=== PATIENT | male | born 1980 | race American Indian/Alaskan Native ===

== ENCOUNTER 2016-12-09 07:34 | Inpatient (IN) | payer OTHER ==
[2016-12-09] MEDS ORDERED: NACL 0.9% 1000 ML 1,000 ML ONE (08:13)
[2016-12-09] MEDS ORDERED: NACL 0.9% 1000 ML 1,000 ML IV ONE (08:20)
[2016-12-09 08:23] LABS: Hematocrit 37.6 % (35.5-45.6); Hemoglobin 12.5 gm/dl (11.8-15.2); Mean Corpuscular HGB Conc 33 % (32-34); Mean Corpuscular Hemoglobin 29 pg (28-32); Mean Corpuscular Volume 89 fl (84-94); Platelet Count 354 K/mm3 (140-440); Red Blood Count 4.25 M/mm3 (3.65-5.03); Red Cell Distribution Width 11.8 % (13.2-15.2); White Blood Count 6.9 K/mm3 (4.5-11.0)
[2016-12-09 08:46] LABS: Anion Gap 16 mmol/L; BUN/Creatinine Ratio 41.66; Blood Urea Nitrogen 25 mg/dL (9-20); Calcium 10.1 mg/dL (8.4-10.2); Carbon Dioxide 24 mmol/L (22-30); Glucose 124 mg/dL (75-100); Potassium 4.1 mmol/L (3.6-5.0); Sodium 135 mmol/L (137-145)
[2016-12-09 09:01] LABS: Basophils % (Manual) 0 % (0.0-1.8); Blastocytes % (Manual) 0 %; Eosinophils % (Manual) 0 % (0.0-4.3)
[2016-12-09 09:03] LABS: Diff Status Complete; RBC Morphology Normal
[2016-12-09 09:05] LABS: Bilirubin,Urine NEG (Negative); Blood,Urine NEG (Negative); Ketones,Urine TR mg/dL (Negative); Leukocyte Esterase,Urine NEG (Negative); Mucus,Urine FEW /HPF; Nitrite,Urine NEG (Negative); Protein,Urine <15 mg/dL mg/dL (Negative); Urobilinogen,Urine < 2.0 mg/dL (<2.0)
--- NOTE | 2016-12-09 10:09 | Emergency Department Report ---
HPI - General Chief Complaint: Arrhythmia/Palpitations Time Seen by Provider: 12/09/16 10:03 - HPI HPI: Chief complaint: Heart racing and chest pain HPI: Patient is a 36-year-old male with no previous history who presents with 1- 2 week history of intermittent chest racing. Patient states it became constant last night. Patient has been having tightness intermittently lasting less than 5 minutes off and on. Patient complains of slight weight loss and feeling hot all the time. Patient has no previous history of hypertension, diabetes, cocaine use, cholesterol, family history of coronary artery disease, personal or family history of DVT, no surgery or recent travel. Mode of arrival: [private car] Source: [Patient] Began: 1-2 weeks Duration: See above Context: See above Quality: See above Severity: Currently 0 out of 10 Improved with: Nothing Worsened with: Nothing Associated signs and symptoms: See above ED Past Medical Hx - Past Medical History Previous Medical History?: No - Surgical History Past Surgical History?: No - Social History Smoking Status: Never Smoker Substance Use Type: Alcohol - Medications Home Medications: Home Medications Medication Instructions Recorded Confirmed Last Taken Type No Known Home Medications [No 12/09/16 12/09/16 Unknown History Reported Home Medications] ED Review of Systems ROS: Stated complaint: RAPID HEART BEAT Other details as noted in HPI ROS Constitutional: No fever ENT: No uri symptoms Cardiovascular: chest pain Respiratory: No sob or cough GI: No nausea vomiting or diarrhea : No dysuria frequency or urgency, Skin: No rash Neuro: No focal weakness or numbness Psych: No depression Alejandro/lymph: No edema Physical Exam - Physical Exam Vital Signs: Vital Signs 12/09/16 12/09/16 12/09/16 07:38 08:01 08:02 Temperature 98.6 F Pulse Rate 138 H 113 H 128 H Respiratory 20 21 26 H Rate Blood Pressure 158/78 124/70 Blood Pressure [Left] O2 Sat by Pulse 99 Oximetry 12/09/16 12/09/16 12/09/16 08:04 08:06 08:08 Temperature 98.4 F Pulse Rate 126 H 139 H 137 H Respiratory 14 25 H 19 Rate Blood Pressure 124/70 124/70 124/70 Blood Pressure 124/70 [Left] O2 Sat by Pulse 99 98 99 Oximetry 12/09/16 12/09/16 12/09/16 08:10 08:12 08:14 Temperature Pulse Rate 120 H 120 H 120 H Respiratory 15 14 18 Rate Blood Pressure 124/70 124/70 124/70 Blood Pressure [Left] O2 Sat by Pulse 98 98 98 Oximetry 12/09/16 12/09/16 12/09/16 08:16 08:18 08:20 Temperature Pulse Rate 119 H 118 H 119 H Respiratory 17 18 18 Rate Blood Pressure 124/70 124/70 124/70 Blood Pressure [Left] O2 Sat by Pulse 98 99 98 Oximetry 12/09/16 12/09/16 12/09/16 08:22 08:24 08:26 Temperature Pulse Rate 112 H 114 H 113 H Respiratory 17 22 24 Rate Blood Pressure 124/70 124/70 124/70 Blood Pressure [Left] O2 Sat by Pulse 98 98 99 Oximetry 12/09/16 12/09/16 12/09/16 08:28 08:30 08:32 Temperature Pulse Rate 118 H 114 H 131 H Respiratory 18 22 18 Rate Blood Pressure 124/70 124/70 124/70 Blood Pressure [Left] O2 Sat by Pulse 97 98 98 Oximetry 12/09/16 12/09/16 12/09/16 08:34 08:36 08:38 Temperature Pulse Rate 139 H 121 H 115 H Respiratory 21 21 35 H Rate Blood Pressure 124/70 124/70 124/70 Blood Pressure [Left] O2 Sat by Pulse 98 99 99 Oximetry 12/09/16 12/09/16 12/09/16 08:40 08:42 08:44 Temperature Pulse Rate 120 H 119 H 118 H Respiratory 21 26 H 16 Rate Blood Pressure 124/70 124/70 124/70 Blood Pressure [Left] O2 Sat by Pulse 98 98 99 Oximetry 12/09/16 12/09/16 12/09/16 08:46 08:48 08:50 Temperature Pulse Rate 118 H 120 H 121 H Respiratory 25 H 28 H 22 Rate Blood Pressure 124/70 124/70 124/70 Blood Pressure [Left] O2 Sat by Pulse 99 100 98 Oximetry 12/09/16 12/09/16 12/09/16 08:52 08:54 08:56 Temperature Pulse Rate 114 H 121 H 119 H Respiratory 18 18 21 Rate Blood Pressure 124/70 124/70 124/70 Blood Pressure [Left] O2 Sat by Pulse 99 98 98 Oximetry 12/09/16 12/09/16 12/09/16 08:58 09:00 09:02 Temperature Pulse Rate 121 H 120 H 131 H Respiratory 22 20 18 Rate Blood Pressure 124/70 127/58 127/58 Blood Pressure [Left] O2 Sat by Pulse 98 97 100 Oximetry 12/09/16 12/09/16 12/09/16 09:04 09:06 09:08 Temperature Pulse Rate 120 H 121 H 124 H Respiratory 24 27 H 21 Rate Blood Pressure 127/58 127/58 127/58 Blood Pressure [Left] O2 Sat by Pulse 97 98 99 Oximetry 12/09/16 12/09/16 12/09/16 09:10 09:12 09:14 Temperature Pulse Rate 125 H 123 H 121 H Respiratory 25 H 24 25 H Rate Blood Pressure 127/58 127/58 127/58 Blood Pressure [Left] O2 Sat by Pulse 99 98 98 Oximetry 12/09/16 12/09/16 12/09/16 09:16 09:18 09:20 Temperature Pulse Rate 123 H 116 H 122 H Respiratory 26 H 23 24 Rate Blood Pressure 127/58 127/58 127/58 Blood Pressure [Left] O2 Sat by Pulse 98 98 98 Oximetry 12/09/16 12/09/16 12/09/16 09:22 09:24 09:26 Temperature Pulse Rate 120 H 119 H 119 H Respiratory 22 24 26 H Rate Blood Pressure 127/58 127/58 127/58 Blood Pressure [Left] O2 Sat by Pulse 98 98 97 Oximetry 12/09/16 12/09/16 12/09/16 09:28 09:30 09:32 Temperature Pulse Rate 116 H 121 H 117 H Respiratory 25 H 24 24 Rate Blood Pressure 127/58 127/58 127/58 Blood Pressure [Left] O2 Sat by Pulse 98 98 98 Oximetry 12/09/16 12/09/16 12/09/16 09:34 09:36 09:38 Temperature Pulse Rate 129 H 119 H 122 H Respiratory 24 25 H 25 H Rate Blood Pressure 127/58 127/58 127/58 Blood Pressure [Left] O2 Sat by Pulse 98 98 97 Oximetry 12/09/16 12/09/16 12/09/16 09:40 09:42 09:44 Temperature Pulse Rate 122 H 120 H 133 H Respiratory 25 H 14 25 H Rate Blood Pressure 127/58 127/58 127/58 Blood Pressure [Left] O2 Sat by Pulse 98 98 99 Oximetry 12/09/16 09:46 Temperature Pulse Rate 128 H Respiratory 11 L Rate Blood Pressure 127/58 Blood Pressure [Left] O2 Sat by Pulse 99 Oximetry Physical Exam: GENERAL: The patient is well-developed well-nourished . HEENT: Normocephalic. Atraumatic. Extraocular motions are intact. Patient has moist mucous membranes. NECK: Supple. No meningitic signs are noted. There is no adenopathy noted. CHEST/LUNGS: Clear to auscultation. There is no respiratory distress noted. HEART/CARDIOVASCULAR: Regular. There is tachycardia. There is no gallop rub or murmur. ABDOMEN: Abdomen is soft, nontender. Patient has normal bowel sounds. There is no abdominal distention. SKIN: There is no rash. There is no edema. There is no diaphoresis. NEURO: The patient is awake, alert, and oriented. The patient is cooperative. The patient has no focal neurologic deficits. The patient has normal speech. MUSCULOSKELETAL: There is no tenderness or deformity. There is no limitation range of motion. There is no evidence of acute injury. ED Course Vital Signs 12/09/16 12/09/16 12/09/16 07:38 08:01 08:02 Temperature 98.6 F Pulse Rate 138 H 113 H 128 H Respiratory 20 21 26 H Rate Blood Pressure 158/78 124/70 Blood Pressure [Left] O2 Sat by Pulse 99 Oximetry 12/09/16 12/09/16 12/09/16 08:04 08:06 08:08 Temperature 98.4 F Pulse Rate 126 H 139 H 137 H Respiratory 14 25 H 19 Rate Blood Pressure 124/70 124/70 124/70 Blood Pressure 124/70 [Left] O2 Sat by Pulse 99 98 99 Oximetry 12/09/16 12/09/16 12/09/16 08:10 08:12 08:14 Temperature Pulse Rate 120 H 120 H 120 H Respiratory 15 14 18 Rate Blood Pressure 124/70 124/70 124/70 Blood Pressure [Left] O2 Sat by Pulse 98 98 98 Oximetry 12/09/16 12/09/16 12/09/16 08:16 08:18 08:20 Temperature Pulse Rate 119 H 118 H 119 H Respiratory 17 18 18 Rate Blood Pressure 124/70 124/70 124/70 Blood Pressure [Left] O2 Sat by Pulse 98 99 98 Oximetry 12/09/16 12/09/16 12/09/16 08:22 08:24 08:26 Temperature Pulse Rate 112 H 114 H 113 H Respiratory 17 22 24 Rate Blood Pressure 124/70 124/70 124/70 Blood Pressure [Left] O2 Sat by Pulse 98 98 99 Oximetry 12/09/16 12/09/16 12/09/16 08:28 08:30 08:32 Temperature Pulse Rate 118 H 114 H 131 H Respiratory 18 22 18 Rate Blood Pressure 124/70 124/70 124/70 Blood Pressure [Left] O2 Sat by Pulse 97 98 98 Oximetry 12/09/16 12/09/16 12/09/16 08:34 08:36 08:38 Temperature Pulse Rate 139 H 121 H 115 H Respiratory 21 21 35 H Rate Blood Pressure 124/70 124/70 124/70 Blood Pressure [Left] O2 Sat by Pulse 98 99 99 Oximetry 12/09/16 12/09/16 12/09/16 08:40 08:42 08:44 Temperature Pulse Rate 120 H 119 H 118 H Respiratory 21 26 H 16 Rate Blood Pressure 124/70 124/70 124/70 Blood Pressure [Left] O2 Sat by Pulse 98 98 99 Oximetry 12/09/16 12/09/16 12/09/16 08:46 08:48 08:50 Temperature Pulse Rate 118 H 120 H 121 H Respiratory 25 H 28 H 22 Rate Blood Pressure 124/70 124/70 124/70 Blood Pressure [Left] O2 Sat by Pulse 99 100 98 Oximetry 12/09/16 12/09/16 12/09/16 08:52 08:54 08:56 Temperature Pulse Rate 114 H 121 H 119 H Respiratory 18 18 21 Rate Blood Pressure 124/70 124/70 124/70 Blood Pressure [Left] O2 Sat by Pulse 99 98 98 Oximetry 12/09/16 12/09/16 12/09/16 08:58 09:00 09:02 Temperature Pulse Rate 121 H 120 H 131 H Respiratory 22 20 18 Rate Blood Pressure 124/70 127/58 127/58 Blood Pressure [Left] O2 Sat by Pulse 98 97 100 Oximetry 12/09/16 12/09/16 12/09/16 09:04 09:06 09:08 Temperature Pulse Rate 120 H 121 H 124 H Respiratory 24 27 H 21 Rate Blood Pressure 127/58 127/58 127/58 Blood Pressure [Left] O2 Sat by Pulse 97 98 99 Oximetry 12/09/16 12/09/16 12/09/16 09:10 09:12 09:14 Temperature Pulse Rate 125 H 123 H 121 H Respiratory 25 H 24 25 H Rate Blood Pressure 127/58 127/58 127/58 Blood Pressure [Left] O2 Sat by Pulse 99 98 98 Oximetry 12/09/16 12/09/16 12/09/16 09:16 09:18 09:20 Temperature Pulse Rate 123 H 116 H 122 H Respiratory 26 H 23 24 Rate Blood Pressure 127/58 127/58 127/58 Blood Pressure [Left] O2 Sat by Pulse 98 98 98 Oximetry 12/09/16 12/09/16 12/09/16 09:22 09:24 09:26 Temperature Pulse Rate 120 H 119 H 119 H Respiratory 22 24 26 H Rate Blood Pressure 127/58 127/58 127/58 Blood Pressure [Left] O2 Sat by Pulse 98 98 97 Oximetry 12/09/16 12/09/16 12/09/16 09:28 09:30 09:32 Temperature Pulse Rate 116 H 121 H 117 H Respiratory 25 H 24 24 Rate Blood Pressure 127/58 127/58 127/58 Blood Pressure [Left] O2 Sat by Pulse 98 98 98 Oximetry 12/09/16 12/09/16 12/09/16 09:34 09:36 09:38 Temperature Pulse Rate 129 H 119 H 122 H Respiratory 24 25 H 25 H Rate Blood Pressure 127/58 127/58 127/58 Blood Pressure [Left] O2 Sat by Pulse 98 98 97 Oximetry 12/09/16 12/09/16 12/09/16 09:40 09:42 09:44 Temperature Pulse Rate 122 H 120 H 133 H Respiratory 25 H 14 25 H Rate Blood Pressure 127/58 127/58 127/58 Blood Pressure [Left] O2 Sat by Pulse 98 98 99 Oximetry 12/09/16 09:46 Temperature Pulse Rate 128 H Respiratory 11 L Rate Blood Pressure 127/58 Blood Pressure [Left] O2 Sat by Pulse 99 Oximetry - Reevaluation(s) Reevaluation #1: 12/09/16 Patient given a liter of normal saline with no change in his heart rate. 12/09/16 12:01 Patient will be given 5 mg of IV Lopressor here in the emergency department and started on oral propranolol. Patient admitted to the hospitalist. ED Medical Decision Making - Lab Data Result diagrams: 12/09/16 08:03 12/09/16 08:03 Laboratory Tests 12/09/16 12/09/16 12/09/16 08:03 10:25 10:25 D-Dimer 419.55 H Glucose 124 H Calcium 10.1 Troponin T < 0.010 TSH < 0.005 L - EKG Data -: EKG Interpreted by Me EKG shows normal: sinus rhythm Rate: tachycardia (126) - EKG Data When compared to previous EKG there are: previous EKG unavailable Interpretation: subendocardial ischemia (diffuse T-wave inversion) - Radiology Data interpreted by me: Chest x-ray shows no acute process. Critical care attestation.: If time is entered above; I have spent that time in minutes in the direct care of this critically ill patient, excluding procedure time. ED Disposition Clinical Impression: Hyperthyroidism, Tachycardia Disposition: OP ADMITTED IP TO THIS HOSP Is pt being admited?: Yes Does the pt Need Aspirin: Yes Condition: Fair Referrals: PRIMARY CARE,MD [Primary Care Provider] - 3-5 Days Time of Disposition: 12:01
--- NOTE | 2016-12-09 11:21 | XRay Report ---
ROUTINE CHEST, TWO VIEWS: HISTORY: chest pain. The trachea, heart, mediastinal contour, lung sandoval and bony thorax are unremarkable. IMPRESSION: Unremarkable chest x-ray.
[2016-12-09] MEDS ORDERED: NACL ONE (11:55)
[2016-12-09 11:56] LABS: Urine Drugs of Abuse Note Disclamer
[2016-12-09] MEDS ORDERED: LOPRESSOR IV ONE ×2 (11:56→12:17)
[2016-12-09] MEDS ORDERED: ASPIRIN PO ONE (12:04)
--- NOTE | 2016-12-09 12:15 | Admit Criteria Form ---
Admission Criteria Documentation: TELEMETRY CARE Telemetry Admission Guidelines (Place 'X' for any and all applicable criteria): Admission to telemetry [A] may be indicated for ANY ONE of the following(1)(2)(3 )(4)(5): [X ]I. Cardiac disease, including ANY ONE of the following (9)(10)(11)(12)( 13): [ ]a) Postacute FL [ ]b) Low-risk patients with ST-segment elevation FL who have undergone successful percutaneous coronary intervention [ ]c) Unstable angina [ ]d) Suspected FL (until it is ruled out) [ ]e) Post cardiac surgery (first 48 to 72 hours unless complications occur) [ X]f) Acute arrhythmias (including significant tachycardia or bradycardia) [B] [ ]g) Firing of an implantable cardioverter defibrillator [C] [ ]h) Suspected pacemaker or implantable cardioverter defibrillator malfunction (10) [ ]i) New administration or adjustment of an antiarrhythmic drug [D ] [ ]j) Child admitted for acute congestive heart failure [ ]j) Long QT syndrome [ ]k) Advanced heart block (eg, second-degree Mobitz type II, third- degree heart block) [ ]l) Acute myocarditis or pericarditis [ ]m) Short-term (ambulatory or inpatient) monitoring after a cardiac procedure as indicated by ANY ONE of the following [E]: [ ]i) Electrophysiologic studies [ ]ii) Percutaneous coronary intervention with stent placement [ ]iii) Pacemaker placement with cardiac conduction defect [ ]iv) Implantable cardiac defibrillator placement [ ]II. Drug overdose or poisoning with substance that causes arrhythmias or QT prolongation (eg, phenothiazines, sympathomimetic agents, cyclic antidepressants, digitalis, antiarrhythmic drugs)(15) [ ]III. Short-term (ambulatory or inpatient) monitoring after therapeutic or diagnostic procedure requiring conscious sedation or anesthesia (eg, endoscopy, elective cardioversion) [ ]IV. Acute cerebrovascular even[F](18) [ ]V. Massive blood transfusion (eg, at least 10 units of packed red blood cells in 24 hours) [ ]. Variceal bleeding after endoscopy, sclerotherapy, or IV vasopressin [ ]VII. Uncorrected electrolyte abnormalities associated with an increased risk of dangerous arrhythmia [G]; examples include [ ]a) Hyperkalemia with attributable ECG changes [ ]b) Potassium greater than 6.5 mmol/L (mEq/L) in a patient without history of chronic renal disease [ ]c) Prolonged QT attributed to hypokalemia, hypomagnesemia, or hypocalcemia [ ]VIII.Unexplained syncope or other neurologic event suspected of being due to arrhythmia due to a finding that increases risk; examples include(19)(20)(21): [ ]a) High-risk ECG findings (eg, bifascicular block, bradycardia, abnormal QT interval, ventricular pre- excitation) [ ]b) History of previous syncope due to arrhythmia [ ]c) Abnormal ventricular function (eg, reduced ejection fraction ) [ ]d) Exertional or supine syncope [ ]e) Concerning syncope characteristics (eg, sudden loss of consciousness without prodrome) [ ]f) Family history of sudden [ ]g) Use of arrhythmogenic medication [ ]h) Suspected cardiac ischemia [ ]i) Known channelopathy (eg, long QT syndrome, Brugada syndrome, or catecholaminergic paroxysmal ventricular tachycardia) [ ]j) Known structural heart disease (eg, hypertrophic cardiomyopathy , severe valvular disease) [ ]k) Palpitations preceding syncope The original [employer] content created by [employer] has been revised. The portions of the content which have been revised are identified through the use of italic text or in bold, and [employer] has neither reviewed nor approved the modified material. All other unmodified content is copyright [employer]. Please see references footnoted in the original [employer] edition 2016 Admission Criteria Met: Yes
[2016-12-09] MEDS ORDERED: ASPIRIN ONE (12:17)
--- NOTE | 2016-12-09 21:10 | History and Physical Report ---
History of Present Illness Date of examination: 12/09/16 Date of admission: 12/09/16 11:57 Medications and Allergies Allergies Allergy/AdvReac Type Severity Reaction Status Date / Time No Known Allergies Allergy Unverified 12/09/16 07:38 Home Medications Medication Instructions Recorded Confirmed Last Taken Type No Known Home Medications [No 12/09/16 12/09/16 Unknown History Reported Home Medications] Active Meds: Active Medications Methimazole (Tapazole) 5 mg PO Q8HR MARCIAL Propranolol HCl (Inderal) 20 mg PO Q8H MARCIAL Exam - Constitutional Vitals: Temp Pulse Resp BP Pulse Ox 98.5 F 112 H 18 124/62 98 12/09/16 20:17 12/09/16 20:17 12/09/16 20:17 12/09/16 20:17 12/09/16 16:45 Results - Labs CBC & Chem 7: 12/09/16 08:03 12/09/16 08:03 Labs: Laboratory Last Values WBC 6.9 K/mm3 (4.5-11.0) 12/09/16 08:03 RBC 4.25 M/mm3 (3.65-5.03) 12/09/16 08:03 Hgb 12.5 gm/dl (11.8-15.2) 12/09/16 08:03 Hct 37.6 % (35.5-45.6) 12/09/16 08:03 MCV 89 fl (84-94) 12/09/16 08:03 MCH 29 pg (28-32) 12/09/16 08:03 MCHC 33 % (32-34) 12/09/16 08:03 RDW 11.8 % (13.2-15.2) L 12/09/16 08:03 Plt Count 354 K/mm3 (140-440) 12/09/16 08:03 [place] % (Auto) Laser Beam Machine Operator 12/09/16 08:03 Add Manual Diff Complete 12/09/16 08:03 Total Counted 100 12/09/16 08:03 Seg Neuts % (Manual) 60.0 % (40.0-70.0) 12/09/16 08:03 Band Neutrophils % 1.0 % 12/09/16 08:03 Lymphocytes % (Manual) 23.0 % (13.4-35.0) 12/09/16 08:03 Reactive Lymphs % (Man) 0 % 12/09/16 08:03 Monocytes % (Manual) 16.0 % (0.0-7.3) H 12/09/16 08:03 Eosinophils % (Manual) 0 % (0.0-4.3) 12/09/16 08:03 Basophils % (Manual) 0 % (0.0-1.8) 12/09/16 08:03 Metamyelocytes % 0 % 12/09/16 08:03 Myelocytes % 0 % 12/09/16 08:03 Promyelocytes % 0 % 12/09/16 08:03 Blast Cells % 0 % 12/09/16 08:03 Nucleated RBC % Not Reportable 12/09/16 08:03 Seg Neutrophils # Man 4.1 K/mm3 (1.8-7.7) 12/09/16 08:03 Band Neutrophils # 0.1 K/mm3 12/09/16 08:03 Lymphocytes # (Manual) 1.6 K/mm3 (1.2-5.4) 12/09/16 08:03 Abs React Lymphs (Man) 0.0 K/mm3 12/09/16 08:03 Monocytes # (Manual) 1.1 K/mm3 (0.0-0.8) H 12/09/16 08:03 Eosinophils # (Manual) 0.0 K/mm3 (0.0-0.4) 12/09/16 08:03 Basophils # (Manual) 0.0 K/mm3 (0.0-0.1) 12/09/16 08:03 Metamyelocytes # 0.0 K/mm3 12/09/16 08:03 Myelocytes # 0.0 K/mm3 12/09/16 08:03 Promyelocytes # 0.0 K/mm3 12/09/16 08:03 Blast Cells # 0.0 K/mm3 12/09/16 08:03 WBC Morphology Not Reportable 12/09/16 08:03 Hypersegmented Neuts Not Reportable 12/09/16 08:03 Hyposegmented Neuts Not Reportable 12/09/16 08:03 Hypogranular Neuts Not Reportable 12/09/16 08:03 Smudge Cells Not Reportable 12/09/16 08:03 Toxic Granulation Not Reportable 12/09/16 08:03 Toxic Vacuolation Not Reportable 12/09/16 08:03 Dohle Bodies Not Reportable 12/09/16 08:03 Pelger-Huet Anomaly Not Reportable 12/09/16 08:03 Sherman Rods Not Reportable 12/09/16 08:03 Platelet Estimate Not Reportable 12/09/16 08:03 Clumped Platelets Not Reportable 12/09/16 08:03 Plt Clumps, EDTA Not Reportable 12/09/16 08:03 Large Platelets Not Reportable 12/09/16 08:03 Giant Platelets Not Reportable 12/09/16 08:03 Platelet Satelliting Not Reportable 12/09/16 08:03 Plt Morphology Comment Not Reportable 12/09/16 08:03 RBC Morphology Normal 12/09/16 08:03 Dimorphic RBCs Not Reportable 12/09/16 08:03 Polychromasia Not Reportable 12/09/16 08:03 Hypochromasia Not Reportable 12/09/16 08:03 Poikilocytosis Not Reportable 12/09/16 08:03 Anisocytosis Not Reportable 12/09/16 08:03 Microcytosis Not Reportable 12/09/16 08:03 Macrocytosis Not Reportable 12/09/16 08:03 Spherocytes Not Reportable 12/09/16 08:03 Pappenheimer Bodies Not Reportable 12/09/16 08:03 Sickle Cells Not Reportable 12/09/16 08:03 Target Cells Not Reportable 12/09/16 08:03 Tear Drop Cells Not Reportable 12/09/16 08:03 Ovalocytes Not Reportable 12/09/16 08:03 Helmet Cells Not Reportable 12/09/16 08:03 Dumas-Angelica Bodies Not Reportable 12/09/16 08:03 [place]ward Rings Not Reportable 12/09/16 08:03 Tal Cells Not Reportable 12/09/16 08:03 Bite Cells Not Reportable 12/09/16 08:03 Crenated Cell Not Reportable 12/09/16 08:03 Elliptocytes Not Reportable 12/09/16 08:03 Acanthocytes (Spur) Not Reportable 12/09/16 08:03 Rouleaux Not Reportable 12/09/16 08:03 Hemoglobin C Crystals Not Reportable 12/09/16 08:03 Schistocytes Not Reportable 12/09/16 08:03 Malaria parasites Not Reportable 12/09/16 08:03 Galdino Bodies Not Reportable 12/09/16 08:03 Hem Pathologist Commnt No 12/09/16 08:03 D-Dimer 419.55 ng/mlDDU (0-234) H 12/09/16 10:25 Sodium 135 mmol/L (137-145) L 12/09/16 08:03 Potassium 4.1 mmol/L (3.6-5.0) 12/09/16 08:03 Chloride 99.0 mmol/L (98-107) 12/09/16 08:03 Carbon Dioxide 24 mmol/L (22-30) 12/09/16 08:03 Anion Gap 16 mmol/L 12/09/16 08:03 BUN 25 mg/dL (9-20) H 12/09/16 08:03 Creatinine 0.6 mg/dL (0.8-1.5) L 12/09/16 08:03 Estimated GFR > 60 ml/min 12/09/16 08:03 BUN/Creatinine Ratio 41.66 % 12/09/16 08:03 Glucose 124 mg/dL (75-100) H 12/09/16 08:03 Calcium 10.1 mg/dL (8.4-10.2) 12/09/16 08:03 Troponin T < 0.010 ng/mL (0.00-0.029) 12/09/16 13:31 TSH < 0.005 mlU/mL (0.270-4.200) L 12/09/16 10:25 Urine Color Yellow (Yellow) 12/09/16 08:40 Urine Turbidity Clear (Clear) 12/09/16 08:40 Urine pH 5.0 (5.0-7.0) 12/09/16 08:40 Ur Specific [place] 1.021 (1.003-1.030) 12/09/16 08:40 Urine Protein <15 mg/dl mg/dL (Negative) 12/09/16 08:40 Urine Glucose (UA) Neg mg/dL (Negative) 12/09/16 08:40 Urine Ketones Tr mg/dL (Negative) 12/09/16 08:40 Urine Blood Neg (Negative) 12/09/16 08:40 Urine Nitrite Neg (Negative) 12/09/16 08:40 Urine Bilirubin Neg (Negative) 12/09/16 08:40 Urine Urobilinogen < 2.0 mg/dL (<2.0) 12/09/16 08:40 Ur Leukocyte Esterase Neg (Negative) 12/09/16 08:40 Urine WBC (Auto) 4.0 /HPF (0.0-6.0) 12/09/16 08:40 Urine RBC (Auto) 3.0 /HPF (0.0-6.0) 12/09/16 08:40 U Epithel Cells (Auto) < 1.0 /HPF (0-13.0) 12/09/16 08:40 Urine Mucus Few /HPF 12/09/16 08:40 Urine Opiates Screen Presumptive negative 12/09/16 08:40 Urine Methadone Screen Presumptive negative 12/09/16 08:40 Ur Barbiturates Screen Presumptive negative 12/09/16 08:40 Ur Phencyclidine Scrn Presumptive negative 12/09/16 08:40 Ur Amphetamines Screen Presumptive negative 12/09/16 08:40 U Benzodiazepines Scrn Presumptive negative 12/09/16 08:40 Urine Cocaine Screen Presumptive negative 12/09/16 08:40 U Marijuana (THC) Screen Presumptive negative 12/09/16 08:40 Drugs of Abuse Note Disclamer 12/09/16 08:40
[2016-12-09] MEDS: TAPAZOLE PO SCH (21:31)
[2016-12-09] MEDS: INDERAL PO SCH ×2 (21:31→21:34)
[2016-12-10] MEDS: INDERAL PO SCH ×4 (05:32→22:54)
[2016-12-10] MEDS: TAPAZOLE PO SCH ×3 (06:18→22:54)
--- NOTE | 2016-12-10 08:59 | Cat Scan Report ---
CTA chest: History: Elevated d-dimer. Findings: No evidence of aortic aneurysm or pulmonary embolism. No mediastinal mass or adenopathy. No pleural pericardial effusion. Pleural-based ill-defined 8mm density/infiltrate right lung. Seen on series 2 image 106. Impression: No evidence of pulmonary embolism. Pleural-based ill-defined nodule/infiltrate right lung.
--- NOTE | 2016-12-10 15:59 | Nuclear Medicine Report ---
Thyroid scan. History: Thyrotoxicosis. Findings: The study was performed after the injection of 10 mCi of technetium 99 pertechnetate. There is diffuse moderate enlargement of both lobes of the thyroid with no focal abnormalities. Impression: Moderate generalized thyromegaly.
[2016-12-10] MEDS ORDERED: LEVAQUIN 500MG/100ML 500 MG/100 ML BAG IV SCH (16:00)
--- NOTE | 2016-12-11 01:22 | Progress Note ---
Assessment and Plan Assessment and plan: Hyperthroidism. Etiology unclear. Started on Tapazole, Inderal. Will follow with Patrol Supervisor as out patient. Sinus tachycardia/palpitations due to hyperthroidism. Infiltrate versus nodule on CT Chest. Start Levaquin for possible pneumonia. Consult Pulmonology for evaluation. DVT prophylaxis with Heparin. Full code status History Interval history: Patient presented with palpitations, diagnosed with hyperthyroidsm, Less palpitations Hospitalist Physical - Physical exam Narrative exam: Gen: not in acute distress HEENT: normocephalic,atraumatic Neck :supple, no JVD Lungs: clear to auscultation bilaterally, no crackles no wheezes Heart: S1 and S2 regular tachycardia, no murmurs,rubs or gallops, Abdomen: soft nontender, nondistended, normal bowel sounds Extremities: no edema, no clubbing or cyanosis Neuro: Awake alert oriented x3, no focal signs Psych: Normal mood - Constitutional Vitals: Temp Pulse Resp BP Pulse Ox 97.8 F 112 H 18 128/54 98 12/11/16 00:05 12/11/16 00:05 12/11/16 00:05 12/11/16 00:05 12/11/16 00:05 Results - Labs CBC & Chem 7: 12/09/16 08:03 12/09/16 08:03 Labs: Laboratory Last Values WBC 6.9 K/mm3 (4.5-11.0) 12/09/16 08:03 RBC 4.25 M/mm3 (3.65-5.03) 12/09/16 08:03 Hgb 12.5 gm/dl (11.8-15.2) 12/09/16 08:03 Hct 37.6 % (35.5-45.6) 12/09/16 08:03 MCV 89 fl (84-94) 12/09/16 08:03 MCH 29 pg (28-32) 12/09/16 08:03 MCHC 33 % (32-34) 12/09/16 08:03 RDW 11.8 % (13.2-15.2) L 12/09/16 08:03 Plt Count 354 K/mm3 (140-440) 12/09/16 08:03 [place] % (Auto) Slitter Processed Film 12/09/16 08:03 Add Manual Diff Complete 12/09/16 08:03 Total Counted 100 12/09/16 08:03 Seg Neuts % (Manual) 60.0 % (40.0-70.0) 12/09/16 08:03 Band Neutrophils % 1.0 % 12/09/16 08:03 Lymphocytes % (Manual) 23.0 % (13.4-35.0) 12/09/16 08:03 Reactive Lymphs % (Man) 0 % 12/09/16 08:03 Monocytes % (Manual) 16.0 % (0.0-7.3) H 12/09/16 08:03 Eosinophils % (Manual) 0 % (0.0-4.3) 12/09/16 08:03 Basophils % (Manual) 0 % (0.0-1.8) 12/09/16 08:03 Metamyelocytes % 0 % 12/09/16 08:03 Myelocytes % 0 % 12/09/16 08:03 Promyelocytes % 0 % 12/09/16 08:03 Blast Cells % 0 % 12/09/16 08:03 Nucleated RBC % Not Reportable 12/09/16 08:03 Seg Neutrophils # Man 4.1 K/mm3 (1.8-7.7) 12/09/16 08:03 Band Neutrophils # 0.1 K/mm3 12/09/16 08:03 Lymphocytes # (Manual) 1.6 K/mm3 (1.2-5.4) 12/09/16 08:03 Abs React Lymphs (Man) 0.0 K/mm3 12/09/16 08:03 Monocytes # (Manual) 1.1 K/mm3 (0.0-0.8) H 12/09/16 08:03 Eosinophils # (Manual) 0.0 K/mm3 (0.0-0.4) 12/09/16 08:03 Basophils # (Manual) 0.0 K/mm3 (0.0-0.1) 12/09/16 08:03 Metamyelocytes # 0.0 K/mm3 12/09/16 08:03 Myelocytes # 0.0 K/mm3 12/09/16 08:03 Promyelocytes # 0.0 K/mm3 12/09/16 08:03 Blast Cells # 0.0 K/mm3 12/09/16 08:03 WBC Morphology Not Reportable 12/09/16 08:03 Hypersegmented Neuts Not Reportable 12/09/16 08:03 Hyposegmented Neuts Not Reportable 12/09/16 08:03 Hypogranular Neuts Not Reportable 12/09/16 08:03 Smudge Cells Not Reportable 12/09/16 08:03 Toxic Granulation Not Reportable 12/09/16 08:03 Toxic Vacuolation Not Reportable 12/09/16 08:03 Dohle Bodies Not Reportable 12/09/16 08:03 Pelger-Huet Anomaly Not Reportable 12/09/16 08:03 [place] Rods Not Reportable 12/09/16 08:03 Platelet Estimate Not Reportable 12/09/16 08:03 Clumped Platelets Not Reportable 12/09/16 08:03 Plt Clumps, EDTA Not Reportable 12/09/16 08:03 Large Platelets Not Reportable 12/09/16 08:03 Giant Platelets Not Reportable 12/09/16 08:03 Platelet Satelliting Not Reportable 12/09/16 08:03 Plt Morphology Comment Not Reportable 12/09/16 08:03 RBC Morphology Normal 12/09/16 08:03 Dimorphic RBCs Not Reportable 12/09/16 08:03 Polychromasia Not Reportable 12/09/16 08:03 Hypochromasia Not Reportable 12/09/16 08:03 Poikilocytosis Not Reportable 12/09/16 08:03 Anisocytosis Not Reportable 12/09/16 08:03 Microcytosis Not Reportable 12/09/16 08:03 Macrocytosis Not Reportable 12/09/16 08:03 Spherocytes Not Reportable 12/09/16 08:03 Pappenheimer Bodies Not Reportable 12/09/16 08:03 Sickle Cells Not Reportable 12/09/16 08:03 Target Cells Not Reportable 12/09/16 08:03 Tear Drop Cells Not Reportable 12/09/16 08:03 Ovalocytes Not Reportable 12/09/16 08:03 Helmet Cells Not Reportable 12/09/16 08:03 [place] Bodies Not Reportable 12/09/16 08:03 [place] Rings Not Reportable 12/09/16 08:03 Tal Cells Not Reportable 12/09/16 08:03 Bite Cells Not Reportable 12/09/16 08:03 Crenated Cell Not Reportable 12/09/16 08:03 Elliptocytes Not Reportable 12/09/16 08:03 Acanthocytes (Spur) Not Reportable 12/09/16 08:03 Rouleaux Not Reportable 12/09/16 08:03 Hemoglobin C Crystals Not Reportable 12/09/16 08:03 Schistocytes Not Reportable 12/09/16 08:03 Malaria parasites Not Reportable 12/09/16 08:03 [place] Bodies Not Reportable 12/09/16 08:03 Hem Pathologist Commnt No 12/09/16 08:03 D-Dimer 419.55 ng/mlDDU (0-234) H 12/09/16 10:25 Sodium 135 mmol/L (137-145) L 12/09/16 08:03 Potassium 4.1 mmol/L (3.6-5.0) 12/09/16 08:03 Chloride 99.0 mmol/L (98-107) 12/09/16 08:03 Carbon Dioxide 24 mmol/L (22-30) 12/09/16 08:03 Anion Gap 16 mmol/L 12/09/16 08:03 BUN 25 mg/dL (9-20) H 12/09/16 08:03 Creatinine 0.6 mg/dL (0.8-1.5) L 12/09/16 08:03 Estimated GFR > 60 ml/min 12/09/16 08:03 BUN/Creatinine Ratio 41.66 % 12/09/16 08:03 Glucose 124 mg/dL (75-100) H 12/09/16 08:03 Calcium 10.1 mg/dL (8.4-10.2) 12/09/16 08:03 Troponin T < 0.010 ng/mL (0.00-0.029) 12/09/16 13:31 TSH < 0.005 mlU/mL (0.270-4.200) L 12/09/16 21:13 Free T4 > 7.77 ng/dL (0.76-1.46) H 12/09/16 21:13 Urine Color Yellow (Yellow) 12/09/16 08:40 Urine Turbidity Clear (Clear) 12/09/16 08:40 Urine pH 5.0 (5.0-7.0) 12/09/16 08:40 Ur Specific [place] 1.021 (1.003-1.030) 12/09/16 08:40 Urine Protein <15 mg/dl mg/dL (Negative) 12/09/16 08:40 Urine Glucose (UA) Neg mg/dL (Negative) 12/09/16 08:40 Urine Ketones Tr mg/dL (Negative) 12/09/16 08:40 Urine Blood Neg (Negative) 12/09/16 08:40 Urine Nitrite Neg (Negative) 12/09/16 08:40 Urine Bilirubin Neg (Negative) 12/09/16 08:40 Urine Urobilinogen < 2.0 mg/dL (<2.0) 12/09/16 08:40 Ur Leukocyte Esterase Neg (Negative) 12/09/16 08:40 Urine WBC (Auto) 4.0 /HPF (0.0-6.0) 12/09/16 08:40 Urine RBC (Auto) 3.0 /HPF (0.0-6.0) 12/09/16 08:40 U Epithel Cells (Auto) < 1.0 /HPF (0-13.0) 12/09/16 08:40 Urine Mucus Few /HPF 12/09/16 08:40 Urine Opiates Screen Presumptive negative 12/09/16 08:40 Urine Methadone Screen Presumptive negative 12/09/16 08:40 Ur Barbiturates Screen Presumptive negative 12/09/16 08:40 Ur Phencyclidine Scrn Presumptive negative 12/09/16 08:40 Ur Amphetamines Screen Presumptive negative 12/09/16 08:40 U Benzodiazepines Scrn Presumptive negative 12/09/16 08:40 Urine Cocaine Screen Presumptive negative 12/09/16 08:40 U Marijuana (THC) Screen Presumptive negative 12/09/16 08:40 Drugs of Abuse Note Disclamer 12/09/16 08:40
[2016-12-11] MEDS ORDERED: HEPARIN SUB-Q SCH (06:00)
[2016-12-11 06:15] LABS: Hematocrit 35.5 % (35.5-45.6); Hemoglobin 11.8 gm/dl (11.8-15.2); Mean Corpuscular HGB Conc 33 % (32-34); Mean Corpuscular Hemoglobin 29 pg (28-32); Mean Corpuscular Volume 88 fl (84-94); Platelet Count 327 K/mm3 (140-440); Red Blood Count 4.03 M/mm3 (3.65-5.03); Red Cell Distribution Width 11.5 % (13.2-15.2); White Blood Count 6.6 K/mm3 (4.5-11.0)
[2016-12-11] MEDS: TAPAZOLE PO SCH (06:16)
[2016-12-11] MEDS: INDERAL PO SCH (06:16)
[2016-12-11 07:23] LABS: Anion Gap 17 mmol/L; Blood Urea Nitrogen 21 mg/dL (9-20); Calcium 9.6 mg/dL (8.4-10.2); Carbon Dioxide 26 mmol/L (22-30); Chloride 102.5 mmol/L (98-107); Glucose 107 mg/dL (75-100); Potassium 4.2 mmol/L (3.6-5.0); Sodium 141 mmol/L (137-145)
[2016-12-11 09:04] VITALS: BP 143/65
--- NOTE | 2016-12-11 10:56 | Discharge Summary ---
Providers - Providers Date of Admission: 12/09/16 11:57 Date of discharge: 12/11/16 Attending physician: MARGARITA BONNER 12/10/16 13:34 Consult to Physician [CONS] Routine Consulting Provider: LEANNA ORTEZ Reason For Exam: Right lung infiltrate/nodule Place consult to:: Dr. Ortez Notified:: office Phone number called:: [phone] Was contact made?: Yes If yes, spoke with:: maddie Time called:: 14:40 Primary care physician: [employer]PERATOR Hospitalization Condition: Fair Disposition: DISCHARGED TO HOME OR SELFCARE - Discharge Diagnoses (1) Hyperthyroidism Status: Acute Exam - Constitutional Vitals: Temp Pulse Resp BP Pulse Ox 98.4 F 121 H 18 143/65 98 12/11/16 08:03 12/11/16 08:03 12/11/16 08:03 12/11/16 08:03 12/11/16 08:03 Plan Activity: no restrictions Diet: regular Additional Instructions: 1.Follow up with PCP or [facility] in 3-5 days. 2.Follow up with Dr. Cabezas,Endocrinology to evaluate Hyperthyroidism in 3-5 days. 3.Follow up with Dr. Gandara, Pulmonology in 1 week. [address]To [address] Chest in 8 months to follow pulmonoly nodule to be followed by Pulmonology. Follow up with: PRIMARY CARE, [Primary Care Provider] - 3-5 Days Prescriptions: Methimazole [Tapazole] 5 mg PO Q8HR #90 tablet Propranolol [Inderal] 40 mg PO Q8HR #90 tablet
[2016-12-11] MEDS ORDERED: LEVAQUIN 500MG/100ML 500 MG/100 ML BAG IV SCH (11:00)
--- NOTE | 2016-12-11 12:22 | Consultation ---
History of Present Illness Consult date: 12/11/16 Requesting physician: MARGARITA BONNER Reason for consult: other (lung infiltrate.) History of present illness: 36 y/o male, former smoker, admitted with thyroid storm. New diagnosis. Had CTA secondary to tachycarda and chest tightness and was found to have a parenchymal, peripheral lesion of the right upper lobe. It is not pleural based as stated in the radiology report. The angles are acute. On room air and stable. Past History Past Medical History: other (Hyperthryoid) Past Surgical History: No surgical history Social history: , smoking (quit 5 years ago, smoked about 20.) Medications and Allergies Allergies Allergy/AdvReac Type Severity Reaction Status Date / Time No Known Allergies Allergy Unverified 12/09/16 07:38 Home Medications Medication Instructions Recorded Confirmed Last Taken Type Methimazole [Tapazole] 5 mg PO Q8HR #90 tablet 12/11/16 Unknown Rx Propranolol [Inderal] 40 mg PO Q8HR #90 tablet 12/11/16 Unknown Rx Active Meds: Active Medications Heparin Sodium (Porcine) (Heparin) 5,000 unit SUB-Q Q8HR [facility] Last Admin: 12/11/16 06:17 Dose: 5,000 unit Levofloxacin/Dextrose (Levaquin 500mg/100ml) 500 mg in 100 mls @ 100 mls/hr IV Q24HR [facility] PRN Reason: Protocol Levofloxacin/Dextrose (Levaquin 500mg/100ml) 500 mg in 100 mls @ 100 mls/hr IV Q24HR [facility] Methimazole (Tapazole) 5 mg PO Q8HR [facility] Last Admin: 12/11/16 06:16 Dose: 5 mg Propranolol HCl (Inderal) 40 mg PO Q8HR [facility] Last Admin: 12/11/16 06:16 Dose: 40 mg Review of Systems All systems: negative Physical Examination Vital signs: Vital Signs Temp Pulse Resp BP Pulse Ox 98.6 F 138 H 20 158/78 99 12/09/16 07:38 12/09/16 07:38 12/09/16 07:38 12/09/16 07:38 12/09/16 07:38 General appearance: no acute distress, alert Eyes: non-icteric ENT: oropharynx moist, oropharynx dry Neck: supple Ascultation: Bilateral: clear Percussion: Bilateral: not dull Tactile fremitus: Bilateral: normal Gastrointestinal: normoactive bowel sounds Extremities: no cyanosis, no edema, pink and warm, pulses normal Results - Laboratory Findings CBC and BMP: 12/11/16 04:32 12/11/16 04:32 PT/INR, D-dimer D-Dimer 419.55 ng/mlDDU (0-234) H 12/09/16 10:25 Abnormal lab findings: Abnormal Labs 12/09/16 12/11/16 12/11/16 21:13 04:32 04:32 RDW 11.5 L BUN 21 H Creatinine 0.5 L Glucose 107 H TSH < 0.005 L Free T4 > 7.77 H - Diagnostic Findings CT scan - chest: image reviewed (reviewed CT as stated in HPI) Assessment and Plan 36 y/o male with right upper lobe lesion, asymptomatic. 1. Suggest follow up with Dr. Gandara 2. would repeat scan in 8-12 months (currently 8mm in size, too small for PET SCAN) 3. If no change, likely chronic and no further work up would be needed.
== END 2016-12-11 14:07 | disposition home or self-care (01) | DRG 645 ==
LOC: ED 07:34 → 4A 11:57
PROVIDERS: ADMIT Internal Medicine; ATTEND Internal Medicine
DX: E05.90 Thyrotoxicosis, unspecified without thyrotoxic crisis or storm (principal); R00.0 Tachycardia, unspecified; Z87.891 Personal history of nicotine dependence; R91.1 Solitary pulmonary nodule
CPT/HCPCS: 36415; 71020; 71275; 78013; 80048; 80307; 81001; 84439; 84443; 84484; 85007; 85025; 85027; 85379; 86800; 87040; 93005; 93010; 96361; 96374; A9512; J1644; J1956; J7030; Q9967